=== PATIENT | female | born 1955 | race Caucasian/White ===

== ENCOUNTER 2017-04-13 10:19 | Outpatient (CLI) | payer OTHER ==
[~2017-04-13 10:19] MED LIST: BICITRA30 ML PO; CYTOMEL5 MCG; FLONASE AL50 MCG/ACT; KLOR-CON 1010 MEQ PO; LEVOTHYROXINE50 MCG PO; LEVOTHYROXINE75 MCG PO; LISINOPRIL10 MG PO; MICRO-K 10 EQU10 MEQ PO; MOTRIN100 MG/5 M PO; PANGESTYME PO; PEPCID20 MG PO; ZOFRAN ODT4 MG PO; [UNRECOGNIZED DRUG - CODE] PO; [UNRECOGNIZED DRUG - OTHER] PO
--- NOTE | 2017-04-13 11:21 | DIAGNOSTIC IMAGING REPORT ---
PROCEDURE: MG BILATERAL SCREENING W/CAD INDICATION: Screening. New baseline. Family history breast carcinoma (grandmother). TECHNIQUE: Bilateral CC and MLO digital views. COMPARISON: None. FINDINGS: Computer-aided detection applied. Moderately dense. No change. IMPRESSION: 1. Negative mammogram RESULT CODE: 1- Negative. A. A negative report should not delay biopsy if a dominant or clinically suspicious mass is present. 10-15% of cancers are not identified by x-ray. B. A negative report may reinforce clinical impression. C. Adenosis and dense breasts may obscure an underlying neoplasm. D. False positive reports average 6-10%. E.. A yearly screening mammogram is recommended. A reminder letter will be scheduled.
== END 2017-04-13 23:00 ==
LOC: MAM SRH 10:19
DX: Z12.31 Encounter for screening mammogram for malignant neoplasm of breast (principal)